=== PATIENT | female | born 1975 | race Caucasian/White ===

== ENCOUNTER 2017-08-09 13:49 | Emergency (ER) | payer OTHER ==
[~2017-08-09] VITALS: Ht 147.3 cm; Wt 72.6 kg
[~2017-08-09 13:49] MED LIST: LISINOPRIL10 MG PO; METOPROLOL SUCC50 MG PO; OMEPRAZOLE40 MG PO; Z.0.SIMVASTATIN20 MG PO
--- OUTSIDE RECORDS SUMMARY | 2017-08-09 13:52 | XMS REPORT | Clinical Summary ---
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 Disp. Refills Start End Date Status Date acetaminophen-codeine Take 1 tablet by mouth as Active (TYLENOL WITH CODEINE #3) needed for moderate pain. 300-30 mg per tablet topiramate (TOPAMAX) 25 Take 1 tablet by mouth 60 tablet 3 01/20/20 Active MG tabletIndications: daily at bedtime for 1-2 17 Intractable chronic weeks and then 2 tablets migraine without aura and by mouth daily at bedtime without status thereafter migrainosus [id number] 2 po at headache onset. 40 capsule 2 05/04/19 nophn (MIDRIN) 65-100-325 If needed, 1 po q 1 hour 17 18 mg per thereafter up to 5 in 24 capsuleIndications: hours. Max use 2 days a Intractable chronic week. migraine without aura and without status migrainosus Active Problems Problem Noted Date Intractable chronic migraine without aura and without status migrainosus Stress 01/19/2017 Vertigo 01/19/2017 Encounters Date Type Specialty Care Team Description 02/23/2017 Telephone Neurology Neha Segura MA 01/19/2017 Office Visit Neurology Nallely Collins MD Intractable chronic migraine without aura and without status migrainosus (Primary Dx); Vertigo; Stress after 08/08/2016 Family History Medical History Relation Name Comments No Known Problems Father Migraines Mother Stroke Mother Migraines Sister Migraines Sister Relation Name Status Comments Father (Age 23) Mother Alive Sister Alive Sister Alive Social History Tobacco Use Types Packs/Day Years Used Date Never Smoker Alcohol Use Drinks/Week oz/Week Comments Yes 12 Cans of 7.2 beer Sex Assigned at Date Recorded Not on file Last Filed Vital Signs Vital Sign Reading Time Taken Blood Pressure 121/82 01/19/2017 8:20 AM [facility] Pulse 80 01/19/2017 8:20 AM [facility] Temperature - - Respiratory Rate - - Oxygen Saturation - - Inhaled Oxygen - - Concentration Weight 79.4 kg (175 lb) 01/19/2017 8:20 AM [facility] Height 147.3 cm (4' 10") 01/19/2017 8:20 AM [facility] Body Mass Index 36.58 01/19/2017 8:20 AM [facility]ELER Plan of Treatment Health Maintenance Due Date Last Done Comments CERVICAL CANCER SCREENING 1994 INFLUENZA VACCINE 10/03/2017 Results Not on fileafter 08/08/2016 Insurance Payer Benefit Subscriber ID Type Phone Address Plan / Group BCBS BCBS xxxxxxxxxxxx PPO CHOICE PPO/[employer] PPO
[2017-08-09] MEDS ORDERED: ACETAMINOPHEN 325 MG TAB PO ONE (14:15)
[2017-08-09] MEDS ORDERED: ONDANSETRON HCL 4 MG ORAL DISINTEGRATING TAB SL ONE (14:15)
[2017-08-09] MEDS ORDERED: IBUPROFEN 200 MG TAB PO ONE (14:15)
[2017-08-09] MEDS ORDERED: ZOFRAN ODT4 MG SL (14:31)
[2017-08-09] MEDS ORDERED: PEPCID20 MG PO (14:31)
[2017-08-09] MEDS ORDERED: TESSALON PERLE100 MG PO (14:31)
[2017-08-09] MEDS ORDERED: IBUPROFEN400 MG PO (14:31)
[2017-08-09] MEDS ORDERED: XYZAL5 MG PO (14:31)
[2017-08-09 14:43] VITALS: BP 155/88
== END 2017-08-09 14:46 | disposition home or self-care (01) ==
LOC: FSED 13:49
DX: J02.9 Acute pharyngitis, unspecified (principal); B34.9 Viral infection, unspecified; I10 Essential (primary) hypertension; E78.5 Hyperlipidemia, unspecified
CPT/HCPCS: 81003; 83518; 99283

== ENCOUNTER 2017-08-27 07:29 | Emergency (ER) | payer OTHER ==
[~2017-08-27] VITALS: Ht 147.3 cm; Wt 73.0 kg
[~2017-08-27 07:29] MED LIST changes: +IBUPROFEN400 MG PO; +PEPCID20 MG PO; +TESSALON PERLE100 MG PO; +XYZAL5 MG PO; +ZOFRAN ODT4 MG SL
[2017-08-27] MEDS: ONDANSETRON HCL INJ 2 MG/ML VIAL IV STA (08:15)
[2017-08-27] MEDS: SODIUM CHLORIDE 0.9% 1000ML 1,000 ML IV ONE (08:20)
[2017-08-27] MEDS: PANTOPRAZOLE 40 MG 10ML VIAL IV STA (08:30)
[2017-08-27] MEDS: DONNATAL/LIDOCAINE/MAALOX 30 ML SUSP PO ONE (09:42)
[2017-08-27 10:08] VITALS: BP 122/70
== END 2017-08-27 10:10 | disposition home or self-care (01) ==
LOC: FSED 07:29
DX: R10.12 Left upper quadrant pain (principal); R11.2 Nausea with vomiting, unspecified; R19.7 Diarrhea, unspecified; K29.00 Acute gastritis without bleeding
CPT/HCPCS: 80053; 81003; 85025; 99284; J2405; J7030